=== PATIENT | female | born 1990 | race African-American/Black ===

== ENCOUNTER 2016-07-31 21:53 | Emergency (ER) | payer BC, OTHER ==
[~2016-07-31] VITALS: Ht 154.9 cm; Wt 56.7 kg
[2016-07-31 23:29] LABS: URINE BILIRUBIN NEGATIVE (Negative); URINE BLOOD 3+ (Negative); URINE COLOR YELLOW; URINE GLUCOSE-RANDOM* NEGATIVE (Negative); URINE KETONES NEGATIVE (Negative); URINE NITRITE NEGATIVE (Negative); URINE PROTEIN (DIPSTICK) TRACE (Negative); URINE UROBILINOGEN 0.2 E.U./dl (0.2-1.0)
[2016-07-31 23:58] LABS: ABSOLUTE NEUTROPHILS 4.4 thou/uL (1.4-8.2); BASOPHILS 0.8 % (0.0-2.0); EOSINOPHILS 2.6 % (0.0-3.0); HEMATOCRIT 40.4 % (37.0-47.0); HEMOGLOBIN 13.6 gm/dL (12.0-15.0); MCH 30.7 pg (26.0-34.0); MCHC 33.7 % (28.0-37.0); MCV 90.9 fL (80.0-100.0); MONOCYTES 7.4 % (1.0-8.0); PLATELET COUNT 143 thou/uL (150-400); POLYS 63.2 % (36.0-66.0); RBC 4.44 mil/uL (4.20-5.00); RDW 13.2 % (10.5-14.5); WBC 6.9 thou/uL (4.0-11.0)
[2016-08-01] LABS: CASTS None Seen /LPF (None Seen); SQUAMOUS 0-3 Few /LPF (0-3)
[2016-08-01 00:01] LABS: URINE RBC >20 Many /HPF (0-2); URINE WBC None Seen /HPF (0-5)
[2016-08-01 00:02] LABS: BACTERIA None Seen /HPF (None Seen); CRYSTALS None Seen /LPF (None Seen); TRANSITIONAL EPITHEL CELL 0-3 Few /LPF (None Seen)
[2016-08-01 00:05] LABS: MANUAL DIFF NO
[2016-08-01 00:06] LABS: CALCIUM 9.1 mg/dL (8.5-10.1); CREATININE 0.7 mg/dL (0.6-1.3); POTASSIUM 3.6 mmol/L (3.5-5.1)
[2016-08-01 00:16] VITALS: BP 110/62
[2016-08-01 00:36] LABS: LARGE PLATELETS MANY
== END 2016-08-01 00:18 | disposition home or self-care (01) ==
LOC: ER 21:53
PROVIDERS: Emergency Medicine
DX: N93.9 Abnormal uterine and vaginal bleeding, unspecified (principal)